=== PATIENT | male | born 1970 | race Caucasian/White ===

== ENCOUNTER 2023-12-04 14:17 | Inpatient (IN) | payer BC ==
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
[2023-12-04 15:53] LABS: Anisocytosis Slight; Basophils # (A) 0.1 k/uL (0-0.2); Basophils % (A) 0 %; Eosinophils # (A) 0.1 k/uL (0-0.7); Eosinophils % (A) 0 %; HCT 32.1 % (39.0-53.0); Lymphocytes # (A) 0.8 k/uL (1.0-4.8); Lymphocytes % (A) 4 %; MCH 29.9 pg (25.0-35.0); MCHC 34.3 g/dL (31.0-37.0); MCV 87.2 fL (80.0-100.0); Mean Platelet Volume 8.2; Monocytes # (A) 0.9 k/uL (0-1.0); Monocytes % (A) 5 %; Neutrophils # (A) 15.6 k/uL (1.3-7.7); Neutrophils % (A) 89 %; Platelet Count 284 k/uL (150-450); RBC 3.68 m/uL (4.30-5.90); RDW 16.1 % (11.5-15.5); WBC 17.5 k/uL (3.8-10.6)
[2023-12-04 15:55] LABS: ALT 17 U/L (4-49); AST 25 U/L (17-59); African American GFR (CKD) 84 (>60 ml/min/1.73 sqM); Albumin 3.7 g/dL (3.5-5.0); Alkaline Phosphatase 85 U/L (38-126); Anion Gap 8 mmol/L; Blood Urea Nitrogen 18 mg/dL (9-20); Calcium 8.5 mg/dL (8.4-10.2); Carbon Dioxide 22 mmol/L (22-30); Chloride 100 mmol/L (98-107); Glucose 135 mg/dL (74-99); Non-African American GFR(CKD) 73 (>60 ml/min/1.73 sqM); Potassium 4.1 mmol/L (3.5-5.1); Sodium 130 mmol/L (137-145); Total Bilirubin 0.5 mg/dL (0.2-1.3); Total Protein 6.9 g/dL (6.3-8.2)
[2023-12-04] MEDS: SODIUM CHLORIDE 0.9% 1,000 ML IV STA (15:56)
[2023-12-04] MEDS ORDERED: VANCOMYCIN IV PER PHARMACY 1 EACH MISC MISCELLANE PRN (16:08)
--- NOTE | 2023-12-04 16:33 | XR ---
EXAMINATION TYPE: XR foot complete LT DATE OF EXAM: 12/04/2023 4:03 PM CLINICAL INDICATION:Male, 53 years old with history of pain, infection; PH[facility] COMPARISON: None TECHNIQUE: XR foot complete LT examined in the AP, oblique, and lateral projections. FINDINGS: No evidence of any acute osseous pathology. Joints are preserved. Calcaneal plantar spurring is prese nt. Atherosclerosis of the arterial vasculature. Multifocal joint space narrowing and osteophyte form ation. Soft tissue defect over the heel noted. No osseous erosion. IMPRESSION: 1. No evidence of acute fracture. 2. Soft tissue without evidence for osseous erosion to suggest osteomyelitis.
--- NOTE | 2023-12-04 16:35 | US ---
EXAMINATION TYPE: US venous doppler duplex LE LT DATE OF EXAM: 12/04/2023 4:24 PM COMPARISON: NONE CLINICAL INDICATION: Male, 53 years old with history of Leg swelling; left leg pain sore on foot. SIDE PERFORMED: Left TECHNIQUE: The lower extremity deep venous system is examined utilizing real time linear array sonog conrad with graded compression, doppler sonography and color-flow sonography. VESSELS IMAGED: Common Femoral Vein Deep Femoral Vein Greater Saphenous Vein * Femoral Vein Popliteal Vein Small Saphenous Vein * Proximal Calf Veins (* superficial vessels) Left Leg: Negative for DVT Hypoechoic area in groin compatible with lymph node 3.2 x 1.8 x 1.9 cm. IMPRESSION: Grayscale, color doppler, spectral doppler imaging performed of the deep veins of the lo wer extremities. There is normal flow, compressibility, vascular waveforms.
[2023-12-04 16:42] LABS: C Reactive Protein 2.6 mg/dL (<1.0)
[2023-12-04] MEDS ORDERED: NALOXONE 0.4 MG/ML 1 ML VIAL IV PRN (16:46)
[2023-12-04] MEDS ORDERED: HYDROcodone/APAP 5-325MG 1 EACH TAB PO PRN (16:46)
[2023-12-04] MEDS: CEFEPIME 2 GM in SODIUM CHLORIDE 0.9% 100 ML IVPB STA (17:03)
[2023-12-04] MEDS: SODIUM CHLORIDE 0.9% 2,000 ML IV STA (17:03)
[2023-12-04] MEDS: ACETAMINOPHEN TAB 500 MG TAB PO STA (17:05)
[2023-12-04 17:46] LABS: Glucose,Whole Blood 85 mg/dL (70-110)
[2023-12-04] MEDS: IBUPROFEN 600 MG TAB PO PRN (17:58)
[2023-12-04 18:01] LABS: Appearance,Urine Clear (Clear); Bacteria,Urine Rare /hpf; Bilirubin,Urine Negative (Negative); Blood,Urine Moderate (Negative); Color,Urine Colorless; Glucose,Urine (UA) 4+ (Negative); Ketones,Urine Negative (Negative); Leukocyte Esterase,Urine Negative (Negative); Mucus,Urine Rare /hpf; Nitrite,Urine Negative (Negative); Protein,Urine 2+ (Negative); RBC,Urine 32 /hpf (0-5); Squamous Epithelial Cell,Urine <1 /hpf (0-4); Urobilinogen,Urine <2.0 mg/dL (<2.0); WBC,Urine 2 /hpf (0-5)
[2023-12-04] MEDS: SODIUM CHLORIDE 0.9% 1,000 ML IV SCH (18:06)
[2023-12-04] MEDS: AMPICILLIN-SULBACTAM 3 GM in SODIUM CHLORIDE 0.9% 100 ML IVPB SCH (18:27)
[2023-12-04] MEDS: VANCOMYCIN 1,750 MG in SODIUM CHLORIDE 0.9% 500 ML 500 ML IVPB STA (18:30)
[2023-12-04] MEDS ORDERED: LINZESS PO PRN (18:55)
[2023-12-04] MEDS ORDERED: DEXTROSE 50% SYRINGE 50 ML IVP PRN (19:12)
[2023-12-04 20:20] LABS: Glucose,Whole Blood 99 mg/dL (70-110)
[2023-12-04] MEDS: ATORVASTATIN 10 MG TAB PO SCH (22:00)
[2023-12-04] MEDS: PANTOPRAZOLE 40 MG TABLET PO SCH (22:01)
[2023-12-04] MEDS: DAPAGLIFLOZIN PROPANEDIOL 5 MG TABLET PO SCH (22:01)
[2023-12-04] MEDS: metFORMIN 500 MG TAB PO SCH (22:01)
[2023-12-04] MEDS: LOSARTAN 50 MG TAB PO SCH (22:02)
[2023-12-04] MEDS: PATIENT'S OWN (Dulaglutide [Trulicity] 0.75 MG/0.5 ML Each) SQ SCH (22:04)
[2023-12-04] MEDS: PARoxetine 20 MG TAB PO SCH (22:04)
[2023-12-04] MEDS: HEPARIN SODIUM,PORCINE 5,000 UNIT/ML 1 ML VIAL SQ SCH (22:06)
[2023-12-04] MEDS: ACETAMINOPHEN TAB 325 MG TAB PO PRN (22:16)
[2023-12-04] MEDS: INSULIN ASPART (NovoLOG) 100 UNIT/ML VIAL SQ SCH (22:17)
[2023-12-04] MEDS: METFORMIN HCL PO SCH (22:23)
[2023-12-04] MEDS: [UNRECOGNIZED DRUG - OTHER] PO SCH (22:23)
[2023-12-04] MEDS: EMPAGLIFLOZIN PO SCH (22:23)
[2023-12-05] MEDS: ONDANSETRON 4 MG/2 ML VIAL IVP PRN (04:16)
[2023-12-05 04:46] LABS: Glucose,Whole Blood 121 mg/dL (70-110)
[2023-12-05 04:49] LABS: Glucose,Whole Blood 143 mg/dL (70-110)
[2023-12-05 05:43] LABS: Anisocytosis Slight; Basophils % (A) 0 %; Eosinophils % (A) 0 %; HCT 32.8 % (39.0-53.0); HGB 10.6 gm/dL (13.0-17.5); Lymphocytes # (A) 0.6 k/uL (1.0-4.8); Lymphocytes % (A) 4 %; MCH 28.8 pg (25.0-35.0); MCHC 32.2 g/dL (31.0-37.0); MCV 89.3 fL (80.0-100.0); Mean Platelet Volume 7.6; Monocytes # (A) 0.7 k/uL (0-1.0); Monocytes % (A) 4 %; Neutrophils % (A) 92 %; Platelet Count 254 k/uL (150-450); RBC 3.67 m/uL (4.30-5.90); RDW 16.4 % (11.5-15.5); WBC 17.4 k/uL (3.8-10.6)
[2023-12-05 05:57] LABS: African American GFR (CKD) 82 (>60 ml/min/1.73 sqM); Anion Gap 7 mmol/L; Blood Urea Nitrogen 18 mg/dL (9-20); Carbon Dioxide 18 mmol/L (22-30); Chloride 107 mmol/L (98-107); Glucose 127 mg/dL (74-99); Non-African American GFR(CKD) 71 (>60 ml/min/1.73 sqM); Potassium 4.3 mmol/L (3.5-5.1); Sodium 132 mmol/L (137-145)
[2023-12-05] MEDS: VANCOMYCIN 1,750 MG in SODIUM CHLORIDE 0.9% 500 ML 500 ML IVPB SCH (06:06)
[2023-12-05 07:18] LABS: Glucose,Whole Blood 99 mg/dL (70-110)
[2023-12-05] MEDS ORDERED: PANTOPRAZOLE 40 MG/10 ML VIAL IV SCH (09:00)
[2023-12-05 11:44] LABS: Glucose,Whole Blood 233 mg/dL (70-110)
[2023-12-05 14:31] LABS: Erythrocyte Sedimentation Rate 46 mm/Hr (0-20)
[2023-12-05 17:32] LABS: Glucose,Whole Blood 249 mg/dL (70-110)
[2023-12-05] MEDS: INSULIN DETEMIR (LEVEMIR) 100 UNIT/ML SYR SQ SCH (18:12)
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
[2023-12-05 20:19] LABS: Glucose,Whole Blood 282 mg/dL (70-110)
[2023-12-05] MEDS ORDERED: METOCLOPRAMIDE 5 MG/ML 2 ML VIAL IVP PRN (21:17)
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
[2023-12-06 07:02] LABS: African American GFR (CKD) 81 (>60 ml/min/1.73 sqM); Anion Gap 8 mmol/L; Blood Urea Nitrogen 20 mg/dL (9-20); Calcium 8.4 mg/dL (8.4-10.2); Carbon Dioxide 20 mmol/L (22-30); Chloride 107 mmol/L (98-107); Glucose 196 mg/dL (74-99); Non-African American GFR(CKD) 70 (>60 ml/min/1.73 sqM); Potassium 4.2 mmol/L (3.5-5.1); Sodium 135 mmol/L (137-145)
[2023-12-06 07:11] LABS: Glucose,Whole Blood 174 mg/dL (70-110)
[2023-12-06 09:19] LABS: Basophils # (A) 0.06 X 10*3/uL (0.00-0.10); Basophils % (A) 0.5 %; Eosinophils # (A) 0.09 X 10*3/uL (0.04-0.35); Eosinophils % (A) 0.7 %; HCT 29.8 % (39.6-50.0); HGB 9.5 g/dL (13.0-17.0); Lymphocytes % (A) 10.2 %; MCH 28.5 pg (27.0-32.0); MCHC 31.9 g/dL (32.0-37.0); MCV 89.5 FL (80.0-97.0); Mean Platelet Volume 10.3 FL (9.5-12.2); Monocytes # (A) 1.11 X 10*3/uL (0.20-1.00); Monocytes % (A) 8.7 %; NRBC Per 100 WBC 0 X 10*3/uL (0.00-0.01); Neutrophils # (A) 10.12 X 10*3/uL (1.80-7.70); Neutrophils % (A) 79.5 %; Platelet Count 249 X 10*3/uL (140-440); RBC 3.33 X 10*6/uL (4.40-5.60); RDW 16.7 % (11.5-14.5); WBC 12.73 X 10*3/uL (4.50-10.00)
[2023-12-06 12:03] LABS: Glucose,Whole Blood 277 mg/dL (70-110)
[2023-12-06] MEDS: PANTOPRAZOLE 40 MG/10 ML VIAL IVP SCH (12:31)
[2023-12-06] MEDS: hydrALAZINE HCL 20 MG/ML 1 ML VIAL IVP PRN (12:58)
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
[2023-12-06 17:42] LABS: Glucose,Whole Blood 259 mg/dL (70-110)
[2023-12-06 20:16] LABS: Glucose,Whole Blood 293 mg/dL (70-110)
[2023-12-07] MEDS: DEXTROSE 50% SYRINGE 50 ML IVP PRN (05:09)
[2023-12-07 05:18] LABS: Glucose,Whole Blood 45 mg/dL (70-110)
[2023-12-07 05:29] LABS: Glucose,Whole Blood 104 mg/dL (70-110)
[2023-12-07] MEDS: VANCOMYCIN TROUGH DUE 1 EACH MISC MISCELLANE ONE (06:10)
[2023-12-07 07:15] LABS: Glucose,Whole Blood 77 mg/dL (70-110)
[2023-12-07 08:13] LABS: African American GFR (CKD) >90 (>60 ml/min/1.73 sqM); Anion Gap 8 mmol/L; Blood Urea Nitrogen 15 mg/dL (9-20); Calcium 8.3 mg/dL (8.4-10.2); Carbon Dioxide 20 mmol/L (22-30); Chloride 109 mmol/L (98-107); Glucose 83 mg/dL (74-99); Non-African American GFR(CKD) 78 (>60 ml/min/1.73 sqM); Potassium 3.4 mmol/L (3.5-5.1); Sodium 137 mmol/L (137-145)
[2023-12-07 08:43] LABS: Basophils # (A) 0.06 X 10*3/uL (0.00-0.10); Basophils % (A) 0.6 %; Eosinophils # (A) 0.28 X 10*3/uL (0.04-0.35); Eosinophils % (A) 2.7 %; HGB 8.7 g/dL (13.0-17.0); Lymphocytes # (A) 1.82 X 10*3/uL (0.90-5.00); Lymphocytes % (A) 17.8 %; MCH 28.7 pg (27.0-32.0); MCHC 32.2 g/dL (32.0-37.0); MCV 89.1 FL (80.0-97.0); Mean Platelet Volume 10.7 FL (9.5-12.2); Monocytes # (A) 1.26 X 10*3/uL (0.20-1.00); Monocytes % (A) 12.3 %; NRBC Per 100 WBC 0 X 10*3/uL (0.00-0.01); Neutrophils # (A) 6.77 X 10*3/uL (1.80-7.70); Neutrophils % (A) 66.3 %; Platelet Count 240 X 10*3/uL (140-440); RBC 3.03 X 10*6/uL (4.40-5.60); RDW 16.4 % (11.5-14.5); WBC 10.22 X 10*3/uL (4.50-10.00)
[2023-12-07] MEDS ORDERED: Magnesium Replacement Protocol 1 EACH MISC MISCELLANE PRN (11:09)
[2023-12-07] MEDS ORDERED: Potassium Replacement Protocol 1 EACH MISC MISCELLANE PRN (11:09)
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
[2023-12-07 12:36] LABS: Glucose,Whole Blood 67 mg/dL (70-110)
[2023-12-07 12:46] LABS: Glucose,Whole Blood 82 mg/dL (70-110)
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
[2023-12-07 17:06] LABS: Glucose,Whole Blood 186 mg/dL (70-110)
[2023-12-07] MEDS: VANCOMYCIN 1,500 MG in SODIUM CHLORIDE 0.9% 500 ML 500 ML IVPB SCH (18:06)
[2023-12-07 20:09] LABS: Glucose,Whole Blood 174 mg/dL (70-110)
[2023-12-07] MEDS: DOCUSATE 100 MG CAP PO SCH (21:11)
[2023-12-08] MEDS: MORPHINE SULFATE 4 MG/ML SYRINGE IV PRN (00:34)
[2023-12-08 07:29] LABS: Glucose,Whole Blood 100 mg/dL (70-110)
--- NOTE | 2023-12-08 10:31 | NM ---
EXAMINATION TYPE: NM bone 3 phase DATE OF EXAM: 12/08/2023 COMPARISON: Radiograph 12/04/2023 CLINICAL INDICATION: Male, 53 years old with history of osteo lt heel; Triple phase bone scintigraphy was performed following the injection of 24.5 mCi Tc 99m MDP. Immedia te images and NA hours post injection images acquired. FINDINGS: Limited exam without delayed imaging. Mild uptake within the left heel on flow and blood pool phases. IMPRESSION: Findings suggestive of at least cellulitis of the left heel. No delayed imaging performed to assess for osteomyelitis.
[2023-12-08 11:15] LABS: Anisocytosis Slight; Basophils # (A) 0.1 k/uL (0-0.2); Basophils % (A) 1 %; Eosinophils # (A) 0.1 k/uL (0-0.7); Eosinophils % (A) 1 %; HCT 27.2 % (39.0-53.0); HGB 8.6 gm/dL (13.0-17.5); Lymphocytes # (A) 1.6 k/uL (1.0-4.8); Lymphocytes % (A) 15 %; MCH 28.3 pg (25.0-35.0); MCHC 31.4 g/dL (31.0-37.0); MCV 90.1 fL (80.0-100.0); Mean Platelet Volume 7.9; Monocytes # (A) 0.8 k/uL (0-1.0); Monocytes % (A) 7 %; Neutrophils # (A) 7.8 k/uL (1.3-7.7); Neutrophils % (A) 74 %; Platelet Count 262 k/uL (150-450); RBC 3.02 m/uL (4.30-5.90); RDW 16.5 % (11.5-15.5); WBC 10.5 k/uL (3.8-10.6)
[2023-12-08] MEDS: METOCLOPRAMIDE 5 MG/ML 2 ML VIAL IVP PRN (11:26)
[2023-12-08] MEDS: NICOTINE 14MG/24HR PATCH TRANSDERM SCH (11:26)
[2023-12-08 11:30] LABS: African American GFR (CKD) >90 (>60 ml/min/1.73 sqM); Anion Gap 10 mmol/L; Blood Urea Nitrogen 13 mg/dL (9-20); Carbon Dioxide 19 mmol/L (22-30); Chloride 107 mmol/L (98-107); Glucose 104 mg/dL (74-99); Magnesium 1.9 mg/dL (1.6-2.3); Non-African American GFR(CKD) >90 (>60 ml/min/1.73 sqM); Potassium 4.2 mmol/L (3.5-5.1); Sodium 136 mmol/L (137-145)
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
[2023-12-08 13:12] LABS: Glucose,Whole Blood 105 mg/dL (70-110)
[2023-12-08] MEDS: amLODIPine 10 MG TAB PO SCH (15:07)
[2023-12-08] MEDS ORDERED: polyethylene glycoL 3350 17 GM POWD.PACK PO PRN (15:13)
[2023-12-08] MEDS: LACTULOSE 20 GM/30 ML CUP PO PRN (16:05)
[2023-12-08 17:13] LABS: Glucose,Whole Blood 164 mg/dL (70-110)
[2023-12-08] MEDS: bisacodyL 10 MG SUPP RECTAL PRN (17:43)
[2023-12-08 20:15] LABS: Glucose,Whole Blood 235 mg/dL (70-110)
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
[2023-12-09 02:02] LABS: Glucose,Whole Blood 203 mg/dL (70-110)
[2023-12-09 08:16] LABS: African American GFR (CKD) >90 (>60 ml/min/1.73 sqM); Anion Gap 8 mmol/L; Blood Urea Nitrogen 16 mg/dL (9-20); Calcium 8.2 mg/dL (8.4-10.2); Carbon Dioxide 21 mmol/L (22-30); Chloride 108 mmol/L (98-107); Glucose 99 mg/dL (74-99); Non-African American GFR(CKD) 90 (>60 ml/min/1.73 sqM); Potassium 3.9 mmol/L (3.5-5.1); Sodium 137 mmol/L (137-145)
[2023-12-09 12:28] LABS: Glucose,Whole Blood 151 mg/dL (70-110)
[2023-12-09] MEDS: METOPROLOL TARTRATE 25 MG TAB PO SCH (14:06)
[2023-12-09 17:20] LABS: Glucose,Whole Blood 197 mg/dL (70-110)
--- NOTE | 2023-12-09 20:21 | PN ---
PROGRESS NOTE DATE OF SERVICE: 12/09/2023 SUBJECTIVE: This 53-year-old gentleman admitted with left heel diabetic ulcer. He is improving significantly. No chest pain, no palpitation. The patient is afebrile at this time. Wound culture showing MRSA and beta-hemolytic strep. OBJECTIVE: VITAL SIGNS: Pulse is 100, blood pressure 161/80, respirations 18. CHEST: Clear to auscultation. CARDIOVASCULAR: S1, S2. ABDOMEN: Soft. NERVOUS SYSTEM: Nonfocal. LABORATORY DATA: Reviewed. ASSESSMENT: 1. Left heel diabetic ulcer with MRSA and beta-hemolytic group G with possible sepsis present on admission. 2. Continued fever. 3. Diabetes type 2. 4. Hypertension. 5. Multiple medical issues. RECOMMENDATIONS: Continue current management and continue symptomatic treatment, otherwise repeat labs, continue the antibiotics. Closely follow with Infectious Disease. Guarded prognosis. Further recommendations to follow. MMZOILAL / IJN: [id number] /
[2023-12-09 20:42] LABS: Glucose,Whole Blood 258 mg/dL (70-110)
[2023-12-09] MEDS: VANCOMYCIN 1,500 MG in SODIUM CHLORIDE 0.9% 500 ML 500 ML IVPB SCH (23:59)
[2023-12-10 07:25] LABS: Glucose,Whole Blood 109 mg/dL (70-110)
[2023-12-10 08:51] LABS: Basophils # (A) 0.07 X 10*3/uL (0.00-0.10); Basophils % (A) 0.8 %; Eosinophils # (A) 0.24 X 10*3/uL (0.04-0.35); Eosinophils % (A) 2.8 %; HCT 25.5 % (39.6-50.0); HGB 8.2 g/dL (13.0-17.0); Lymphocytes % (A) 20.7 %; MCH 28.2 pg (27.0-32.0); MCHC 32.2 g/dL (32.0-37.0); MCV 87.6 FL (80.0-97.0); Mean Platelet Volume 10.3 FL (9.5-12.2); Monocytes # (A) 0.93 X 10*3/uL (0.20-1.00); Monocytes % (A) 10.7 %; NRBC Per 100 WBC 0 X 10*3/uL (0.00-0.01); Neutrophils # (A) 5.52 X 10*3/uL (1.80-7.70); Neutrophils % (A) 63.6 %; Platelet Count 324 X 10*3/uL (140-440); RBC 2.91 X 10*6/uL (4.40-5.60); RDW 17.3 % (11.5-14.5); WBC 8.68 X 10*3/uL (4.50-10.00)
[2023-12-10 09:05] LABS: ALT 46 U/L (10-49); AST 24 U/L (14-35); Albumin 3.2 g/dL (3.8-4.9); Albumin/Globulin Ratio 1.19 Ratio (1.60-3.17); Alkaline Phosphatase 354 U/L (41-126); Calcium 8.3 mg/dL (8.7-10.3); Carbon Dioxide 21.9 mmol/L (21.6-31.8); Chloride 106 mmol/L (96-109); Globulin 2.7 g/dL (1.6-3.3); Glucose 142 mg/dL (70-110); Sodium 139 mmol/L (135-145); Total Bilirubin 0.4 mg/dL (0.3-1.2); Total Protein 5.9 g/dL (6.2-8.2)
--- NOTE | 2023-12-10 09:18 | P.PN ---
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 On today's visit that is 12/09/2023, Patient is afebrile patient is currently on room air and denies having any shortness of breath, the patient denies any chest pain or cough, the patient denies any nausea vomiting did not have any abdominal pain and no diarrhea, denies pain to the left heel wound overall leg redness has decreased No CBC was done today his creatinine 0.97 sensitivities on the MRSA currently pending wound scan was negative for osteomyelitis Objective - Vital Signs Vital signs: Vital Signs Temp 98.2 F 12/09/23 08:00 Pulse 100 12/09/23 08:00 Resp 18 12/09/23 08:00 BP 161/86 12/09/23 08:00 Pulse Ox 95 12/09/23 08:00 FiO2 Intake & Output 12/08/23 12/09/23 12/09/23 18:59 06:59 18:59 Intake Total 1465 120 Output Total 700 250 Balance -700 1215 120 Weight 47 kg Intake: Intake, IV Titration 1465 Amount Ampicillin-Sulbactam 3 gm 100 In Sodium Chloride 0.9% 100 ml @ 200 mls/hr IVPB Q6HR JOSE JUAN Rx#:[id number] Sodium Chloride 0.9% 1, 865 000 ml @ 75 mls/hr IV . [id number] JOSE JUAN Rx#:[id number] Vancomycin 1,500 mg In 500 Sodium Chloride 0.9% 500 ml 500 ml @ 167 mls/hr IVPB Q12H JOSE JUAN Rx#: [id number] Oral 120 Output: Urine 700 250 Other: Voiding Method Toilet Bedside Commode Urinal # Voids 5 # Bowel Movements 1 - Exam GENERAL DESCRIPTION: Middle-age male lying in bed in no distress RESPIRATORY SYSTEM: Unlabored breathing , decreased breath sounds at bases HEART: S1 S2 regular rate and rhythm , ABDOMEN: Soft , no tenderness EXTREMITIES: Left lower extremity redness has decreased left heel wound is currently dressed, no drainage - Labs CBC & Chem 7: 12/10/23 06:04 12/10/23 06:04 Labs: Abnormal Lab Results - Last 24 Hours (Table) 12/08/23 12/08/23 12/08/23 Range/Units 10:45 10:45 16:59 RBC 3.02 L (4.30-5.90) m/uL Hgb 8.6 L D (13.0-17.5) gm/dL Hct 27.2 L (39.0-53.0) % RDW 16.5 H (11.5-15.5) % Neutrophils # 7.8 H (1.3-7.7) k/uL Sodium 136 L (137-145) mmol/L Chloride (98-107) mmol/L Carbon Dioxide 19 L (22-30) mmol/L Glucose 104 H (74-99) mg/dL POC Glucose (mg/dL) 164 H (70-110) mg/dL Calcium 8.0 L (8.4-10.2) mg/dL 12/08/23 12/09/23 12/09/23 Range/Units 20:14 01:54 06:52 RBC (4.30-5.90) m/uL Hgb (13.0-17.5) gm/dL Hct (39.0-53.0) % RDW (11.5-15.5) % Neutrophils # (1.3-7.7) k/uL Sodium (137-145) mmol/L Chloride 108 H (98-107) mmol/L Carbon Dioxide 21 L (22-30) mmol/L Glucose (74-99) mg/dL POC Glucose (mg/dL) 235 H 203 H (70-110) mg/dL Calcium 8.2 L (8.4-10.2) mg/dL Microbiology - Last 24 Hours (Table) 12/07/23 11:19 Blood Culture - Preliminary Blood Assessment and Plan (1) Left leg cellulitis Current Visit: Yes Status: Acute Code(s): L03.116 - CELLULITIS OF LEFT LOWER LIMB SNOMED Code(s): 07156429805826949 (2) Leukocytosis Current Visit: Yes Status: Acute Code(s): D72.829 - ELEVATED WHITE BLOOD CELL COUNT, UNSPECIFIED SNOMED Code(s): 476019557 (3) Diabetic ulcer of heel Current Visit: Yes Status: Acute Code(s): E11.621 - TYPE 2 DIABETES MELLITUS WITH FOOT ULCER; L97.409 - NON-PRS CHRONIC ULCER OF UNSP HEEL AND MIDFOOT W UNSP SEVERT SNOMED Code(s): 309578233 Plan: 1patient presented to hospital with sepsis in this patient who did have fever tachycardia elevated white count source is left heel diabetic foot infection with secondary cellulitis likely from gram-positive skin citlali keeping in mind rapid onset significant rigors and high fever could be streptococcal illness MRSA not excluded. 2local wound culture currently growing group G strep and present MRSA with sensitivities still pending 3local wound care with a dry Aquacel silver dressing change every 48 hours keep the area of the pressure 4patient fever has resolved white count has normalized still waiting for the final sensitivities on MRSA patient is covered with vancomycin and Unasyn, bone scan was negative for osteomyelitis plan is for oral antibiotics once we get the sensitivities on MRSA discussed with the [employer] for admitting team Dictation was produced using [employer] dictation software. please excuse any grammatical, word or spelling errors. Time with Patient: Less than 30
[2023-12-10 11:26] VITALS: BMI 32.0
[2023-12-10 12:33] LABS: Glucose,Whole Blood 163 mg/dL (70-110)
[2023-12-10 14:23] VITALS: BP 148/89; PULSE 83; RESP 18; TEMP 98.3
== END 2023-12-10 15:16 | disposition home or self-care (01) | DRG 872 ==
LOC: EC 14:17 → 5NMEDONC 16:43
PROVIDERS: ADMIT Internal Medicine; ATTEND Internal Medicine
DX: A41.02 Sepsis due to Methicillin resistant Staphylococcus aureus (principal); L03.116 Cellulitis of left lower limb; L97.429 Non-pressure chronic ulcer of left heel and midfoot with unspecified severity; E11.42 Type 2 diabetes mellitus with diabetic polyneuropathy; E11.621 Type 2 diabetes mellitus with foot ulcer; L97.509 Non-pressure chronic ulcer of other part of unspecified foot with unspecified severity; E11.622 Type 2 diabetes mellitus with other skin ulcer; E78.5 Hyperlipidemia, unspecified; F32.A Depression, unspecified; I10 Essential (primary) hypertension; K59.00 Constipation, unspecified; K21.9 Gastro-esophageal reflux disease without esophagitis; L89.629 Pressure ulcer of left heel, unspecified stage; Z79.4 Long term (current) use of insulin; Z79.85 Long-term (current) use of injectable non-insulin antidiabetic drugs; Z79.899 Other long term (current) drug therapy; Z11.52 Encounter for screening for COVID-19; Z87.891 Personal history of nicotine dependence; Z88.5 Allergy status to narcotic agent
CPT/HCPCS: 36415; 78315; 80048; 80053; 80202; 81001; 82272; 83036; 83605; 83735; 85025; 85652; 86140; 87040; 87070; 87075; 87077; 87186; 87205; 87636; 96361; 96365; 99291